=== PATIENT | female | born 1975 | race Caucasian/White ===

== ENCOUNTER 2023-09-06 11:00 | Emergency (ER) | payer BC, SELFPAY ==
[2023-09-06 11:09] VITALS: BP 148/91; PULSE 68; RESP 18; TEMP 36.6; O2SAT 100
--- NOTE | 2023-09-06 11:24 | ED.GENADULT ---
HPI - General Adult General Chief complaint: Unspecified Stated complaint: Fatigue/Blood Sugar Problem History of Present Illness HPI narrative: Patient presents with episodes of hypoglycemia. Patient states she recently moved to [place] from [place] and her ball sorter is in [place]. Patient states she has a call placed to ball sorter for possible dietitian referral. At present patient is increasing her proteins avoiding carbs and sweets and increasing her calorie intake to keep her blood sugars from dropping. Related Data Allergies Allergy/AdvReac Type Severity Reaction Status Date / Time clindamycin Allergy Rash Verified 09/06/23 11:19 Review of Systems Review of Systems: CONSTITUTIONAL: Denies fever, chills, or sweats. EYES: Denies visual changes, redness, or discharge. ENT: Denies rhinorrhea, congestion, sore throat, or otalgia. CARDIOVASCULAR: Denies chest pain, palpitations, or edema. RESPIRATORY: Denies cough or dyspnea. GASTROINTESTINAL: Denies abdominal pain, nausea, vomiting, or diarrhea. GENITOURINARY: Denies dysuria or hematuria. SKIN: Denies rash or itching. MUSCULOSKELETAL: Denies back pain, joint pain, or myalgia. NEUROLOGIC: Denies headache, numbness, or weakness. PSYCHIATRIC: Denies anxiety or depression. PMFSH Comments At time of signature, agree with nursing past medical, surgical, social and family history. There is no relevant family history pertinent to the presenting complaint Exam Narrative: At time of signature, agree with nursing past medical, surgical, social and family history. There is no relevant family history pertinent to the presenting complaint GENERAL: Well-appearing, well-nourished, and in no acute distress. HEAD: Normocephalic, atraumatic. EYES: PERRLA and EOMI. ENT: Nares clear, no rhinorrhea or epistaxis. Mucous membranes moist. NECK: Supple. CHEST: Clear to auscultation. No respiratory distress. HEART: Regular rate and rhythm. No murmur heard. Normal peripheral pulses. ABDOMEN: Soft, nontender, nondistended, normal active bowel sounds. EXTREMITIES: Normal range of motion. No edema. SKIN: Warm, dry, no rash. NEURO: No focal deficits. Alert and oriented x3. Anam Coma Scale Eye Opening: Spontaneous 4 Crawford Coma Scale Motor: Obeys Commands 6 Anam Coma Scale Verbal: Oriented 5 Crawford Coma Scale Total 15 Course Course Level of Care: Express Care Visit Vital Signs Vital signs: Vital Signs Temperature 36.6 C 09/06/23 11:09 Pulse Rate 68 09/06/23 11:09 Respiratory Rate 18 09/06/23 11:09 Blood Pressure 148/91 H 09/06/23 11:09 Pulse Oximetry 100 09/06/23 11:09 Oxygen Delivery Room Air 09/06/23 11:09 Temperature 36.6 C 09/06/23 11:09 Pulse Rate 68 09/06/23 11:09 Respiratory Rate 18 09/06/23 11:09 Blood Pressure 148/91 H 09/06/23 11:09 Pulse Oximetry 100 09/06/23 11:09 Oxygen Delivery Room Air 09/06/23 11:09 Long discussion with patient regarding proteins and frequent meals to keep blood sugars above 100. Discussed red flags and when to go to ER. Discussed to avoid sugars and sweets. Patient states she will follow-up with her ball sorter was out of state for a dietary referral and needs a list of doctors here to establish care. Medical Decision Making Vital Signs Vital Signs: Vital Signs Temperature 36.6 C 09/06/23 11:09 Pulse Rate 68 09/06/23 11:09 Respiratory Rate 18 09/06/23 11:09 Blood Pressure 148/91 H 09/06/23 11:09 Pulse Oximetry 100 09/06/23 11:09 Oxygen Delivery Room Air 09/06/23 11:09 Temperature 36.6 C 09/06/23 11:09 Pulse Rate 68 09/06/23 11:09 Respiratory Rate 18 09/06/23 11:09 Blood Pressure 148/91 H 09/06/23 11:09 Pulse Oximetry 100 09/06/23 11:09 Oxygen Delivery Room Air 09/06/23 11:09 Discharge Plan Discharge Clinical Impression: Physically well but worried Patient Disposition: Home, Self-Care Condition: Stable
== END 2023-09-06 11:36 | disposition home or self-care (01) ==
PROVIDERS: Emergency Provider Nurse Practitioner Family
DX: Z71.1 Person with feared health complaint in whom no diagnosis is made (principal); E11.9 Type 2 diabetes mellitus without complications; E03.9 Hypothyroidism, unspecified
CPT/HCPCS: 99211; G0463